=== PATIENT | male | born 1945 | race African-American/Black ===

== ENCOUNTER 2017-12-31 20:21 | Emergency (ER) | payer OTHER ==
[~2017-12-31] VITALS: Ht 165.1 cm; Wt 72.6 kg
[~2017-12-31 20:21] MED LIST: ATORVASTATIN CA80 MG PO; CIPRO500 MG PO; CIPRO750 MG PO; CLOPIDOGREL BIS75 MG PO; LEVAQUIN750 MG PO; LOSARTAN-HCTZ1 EACH PO; NABUMETONE500 MG PO; NORVASC5 MG PO; PERCOCET 5/3251 TAB PO; RANITIDINE HCL300 M1 PO; TENORMIN25 MG PO
[2017-12-31] MEDS ORDERED: NEURONTIN800 MG (20:28)
[2017-12-31] MEDS ORDERED: LOSARTAN-HCTZ1 EAC2 (20:29)
[2017-12-31] MEDS ORDERED: ZANTAC 7575 MG (20:30)
[2018-01-01] MEDS ORDERED: NABUMETONE750 MG PO (06:53)
== END 2018-01-01 08:44 | disposition home or self-care (01) ==
LOC: ER 20:21 → EDBD 20:25 → ER 20:25
DX: L03.115 Cellulitis of right lower limb (principal)

== ENCOUNTER 2018-05-05 13:10 | Emergency (ER) | payer OTHER ==
[~2018-05-05] VITALS: Ht 165.1 cm; Wt 70.3 kg
[~2018-05-05 13:10] MED LIST changes: +LOSARTAN-HCTZ1 EAC2; +NABUMETONE750 MG PO; +NEURONTIN800 MG; +ZANTAC 7575 MG
== END 2018-05-05 17:49 | disposition home or self-care (01) ==
LOC: ER 13:10
DX: L03.116 Cellulitis of left lower limb (principal); I87.2 Venous insufficiency (chronic) (peripheral)

== ENCOUNTER 2019-05-19 10:56 | Emergency (ER) | payer OTHER ==
[~2019-05-19] VITALS: Ht 167.6 cm; Wt 77.1 kg
[2019-05-19] MEDS ORDERED: BACLOFEN20 MG (11:13)
[2019-05-19] MEDS ORDERED: HYZAAR 50-12.51 EACH (11:16)
== END 2019-05-19 15:43 | disposition home or self-care (01) ==
LOC: ER 10:56
DX: R42 Dizziness and giddiness (principal)

== ENCOUNTER 2020-02-20 07:09 | Outpatient (CLI) | payer OTHER ==
[~2020-02-20 07:09] MED LIST changes: +BACLOFEN20 MG; +HYZAAR 50-12.51 EACH
== END 2020-02-20 15:00 | disposition home or self-care (01) ==
LOC: LAB 07:09
PROVIDERS: ATTEND Internal Medicine Cardiovascular Disease
DX: J11.1 Influenza due to unidentified influenza virus with other respiratory manifestations (principal); D64.0 Hereditary sideroblastic anemia; R05 Cough; R06.2 Wheezing; R50.9 Fever, unspecified

== ENCOUNTER 2021-02-04 06:48 | Emergency (ER) | payer OTHER ==
[~2021-02-04] VITALS: Ht 165.1 cm; Wt 72.6 kg
[2021-02-04] MEDS ORDERED: TAMS0.4C PO (14:03)
== END 2021-02-04 14:17 | disposition home or self-care (01) ==
LOC: ER 06:48 → EDSEX 06:48 → ER 06:56
DX: R33.8 Other retention of urine (principal)

== ENCOUNTER 2021-03-08 12:15 | Emergency (ER) | payer OTHER ==
[~2021-03-08] VITALS: Ht 165.1 cm; Wt 72.6 kg
[~2021-03-08 12:15] MED LIST changes: +TAMS0.4C PO
[2021-03-08] MEDS ORDERED: DICLOFENAC POTA50 MG PO (20:09)
[2021-03-08] MEDS ORDERED: CEFDINIR300 MG PO (20:09)
== END 2021-03-08 20:30 | disposition home or self-care (01) ==
LOC: ER 12:15
DX: R25.2 Cramp and spasm (principal); N39.0 Urinary tract infection, site not specified

== ENCOUNTER 2021-10-03 14:47 | Emergency (ER) | payer OTHER ==
[~2021-10-03] VITALS: Ht 165.1 cm; Wt 68.0 kg
[~2021-10-03 14:47] MED LIST changes: +CEFDINIR300 MG PO; +DICLOFENAC POTA50 MG PO
== END 2021-10-03 18:51 | disposition home or self-care (01) ==
LOC: ER 14:47
DX: I10 Essential (primary) hypertension (principal)

== ENCOUNTER 2022-01-02 12:49 | Emergency (ER) | payer OTHER ==
[~2022-01-02] VITALS: Ht 170.2 cm; Wt 65.8 kg
== END 2022-01-02 15:38 | disposition home or self-care (01) ==
LOC: ER 12:49
DX: S09.90XA Unspecified injury of head, initial encounter (principal); W18.31XA Fall on same level due to stepping on an object, initial encounter; Y93.9 Activity, unspecified; Y92.019 Unspecified place in single-family (private) house as the place of occurrence of the external cause; S50.01XA Contusion of right elbow, initial encounter; I10 Essential (primary) hypertension